=== PATIENT | male | born 1945 | race Caucasian/White ===

== ENCOUNTER 2023-09-21 10:05 | Inpatient (IN) | payer MEDICARE ==
[~2023-09-21] VITALS: Ht 172.7 cm; Wt 102.5 kg
[2023-09-21] VITALS (7 sets, daily range): BP systolic 100–127; BP diastolic 64–80; TEMP 100.2–100.5; O2SAT 95–98
[2023-09-21] MEDS ORDERED: ASPIRIN PO (10:17)
[2023-09-21] MEDS ORDERED: METOPROLOL (10:17)
[2023-09-21] MEDS ORDERED: LISINOPRIL (10:17)
[2023-09-21 10:39] LABS: BASOPHILS # (AUTO) 0.1 K/UL (0.0-0.2); BASOPHILS % (AUTO) 0.5 % (0.0-2.0); EOSINOPHILS % (AUTO) 0.1 % (0.0-7.0); HEMATOCRIT 42.1 % (36.7-47.1); HEMOGLOBIN 14.1 g/dL (12.5-16.3); LYMPHOCYTES # (AUTO) 0.6 K/uL (0.8-4.8); LYMPHOCYTES % (AUTO) 4.1 % (20.5-51.5); MEAN CORPUSCULAR HEMOGLOBIN 32.8 uug (23.8-33.4); MEAN CORPUSCULAR HGB CONC 34 g/dL (32.5-36.3); MEAN CORPUSCULAR VOLUME 97.9 fL (73.0-96.2); MONOCYTES # (AUTO) 1.4 K/uL (0.1-1.30); MONOCYTES % (AUTO) 8.9 % (0.0-11.0); NEUTROPHILS # (AUTO) 13.1 K/uL (1.8-8.9); NEUTROPHILS % (AUTO) 86.4 % (38.5-71.5); PLATELET COUNT (AUTO) 145 K/uL (152-348); RED CELL DISTRIBUTION WIDTH 13.6 % (12.1-16.2); WHITE BLOOD COUNT (AUTO) 15.2 K/uL (3.6-10.2)
[2023-09-21 11:00] LABS: DIFFERENTIAL COMMENT 1
[2023-09-21 11:28] LABS: ALANINE AMINOTRANSFERASE 35 U/L (16-63); ALBUMIN 2.8 g/dL (3.4-5.0); ALKALINE PHOSPHATASE 85 U/L (50-136); ASPARTATE AMINOTRANSFERASE 59 U/L (15-37); BILIRUBIN,DIRECT 0.7 mg/dL (0.0-0.2); BILIRUBIN,TOTAL 2.3 mg/dL (0.2-1.0); CARBON DIOXIDE 26 mmol/L (21-32); CHLORIDE 102 mmol/L (98-107); CREATININE 1.3 mg/dL (0.6-1.3); GLUCOSE 141 mg/dL (74-106); POTASSIUM 3.8 mmol/L (3.5-5.1); SODIUM SERUM 140 mmol/L (136-145); UREA NITROGEN, BLOOD 32 mg/dL (7-18)
[2023-09-21 11:37] LABS: ACETAMINOPHEN < 2.0 ug/mL (10-30)
[2023-09-21 11:38] LABS: ETHANOL < 3 MG/DL (0-10)
[2023-09-21 11:40] LABS: AMMONIA 10 umol/L (11-32)
[2023-09-21 11:59] LABS: LACTIC ACID 2.1 mmol/L (0.4-2.0)
[2023-09-21] MEDS ORDERED: ENOXAPARIN SODIUM 100 MG/ML DISP.SYRIN SQ ONE (12:47)
[2023-09-21] MEDS ORDERED: DILTIAZEM HCL 50 MG IV ONE (12:48)
[2023-09-21] MEDS: DILTIAZEM HCL 25 MG IV IV ONE (13:05)
[2023-09-21] MEDS: IV NORMAL SALINE 1000 ML BAG IV ONE (13:05)
[2023-09-21] MEDS: ENOXAPARIN SODIUM 100 MG/ML DISP.SYRIN SQ ONE ×3 (13:07→22:38)
[2023-09-21] MEDS: CEFTRIAXONE 2 G in IV DEXTROSE 5% 100 ML IV ONE (16:12)
[2023-09-21] MEDS ORDERED: CEFTRIAXONE /D5W 50ML IVPB **ER PYXIS IV ONE (16:13)
[2023-09-21 16:21] LABS: *BLOOD, URINE 2+ (NEGATIVE); *CLARITY,URINE CLEAR (CLEAR); *COLOR,URINE YELLOW (YELLOW); *KETONES,URINE NEGATIVE (NEGATIVE); *PROTEIN,URINE 2+ (NEGATIVE); LEUKOCYTE ESTERASE ,URINE NEGATIVE (NEGATIVE); NITRITE, URINE NEGATIVE (NEGATIVE); PH,URINE 5.5 (5.0-8.0); UGLUCOSE NEGATIVE (NEGATIVE)
[2023-09-21 16:25] LABS: *BILIRUBIN,URIN 1+ (NEGATIVE)
[2023-09-21 16:34] LABS: *AMPHETAMINE, URINE NEGATIVE (NEGATIVE); *BARBITURATE, URINE NEGATIVE (NEGATIVE); *BENZODIAZEPINE, URINE NEGATIVE (NEGATIVE); *CANNABINOID, URINE NEGATIVE (NEGATIVE); *COCCAINE, URINE NEGATIVE (NEGATIVE); *OPIATE, URINE NEGATIVE (NEGATIVE); *PHENCYCLIDINE SCREEN,URINE NEGATIVE (NEGATIVE)
[2023-09-21 16:36] LABS: BACTERIA,URINE MODERATE /HPF (NONE SEEN); RBC,URINE 80-100 /HPF (0-3); SQUAMOUS EPITHELIAL CELL,UR FEW /HPF (NONE SEEN); WBC,URINE 0-3 /HPF (0-3)
[2023-09-21 16:37] LABS: FENTANYL, URINE NEGATIVE (NEGATIVE)
[2023-09-21] MEDS ORDERED: LISI-782 PO (17:41)
[2023-09-21] MEDS: ACETAMINOPHEN 500 MG TABLET PO PRN (18:07)
[2023-09-21] MEDS: AMIODARONE HCL IV 150 MG in IV DEXTROSE 5% 100 ML IV ONE (18:08)
[2023-09-21] MEDS: AMIODARONE HCL IV 450 MG in IV DEXTROSE 5% 250 ML IV PRN (18:38)
[2023-09-21] MEDS ORDERED: ONDANSETRON 4 MG/2 ML VIAL IV PRN (18:45)
[2023-09-21] MEDS: VANCOMYCIN HCL 1,500 MG in IV DEXTROSE 5% 500 ML IV ONE (21:00)
[2023-09-21] MEDS: METOPROLOL TARTRATE 25 MG TABLET PO SCH (22:09)
[2023-09-21] MEDS: MORPHINE SULFATE 2 MG/1 ML DISP.SYRIN IV PRN (22:09)
[2023-09-21] MEDS: ENOXAPARIN SODIUM 40 MG/0.4 ML DISP.SYRIN SQ ONE (22:30)
[2023-09-21] MEDS: ENOXAPARIN SODIUM 60 MG/0.6 ML DISP.SYRIN SQ ONE (22:31)
[2023-09-21] MEDS ORDERED: PIPERACILLIN/TAZOBACTAM/D5W 50 ML IV ONE (22:41)
[2023-09-21] MEDS ORDERED: VANCOMYCIN 1000 MG VIAL ONE (22:41)
[2023-09-21] MEDS ORDERED: VANCOMYCIN HCL 500 MG VIAL ONE (22:42)
[2023-09-21] MEDS: PIPERACILLIN SODIUM/TAZOBACTAM 3.375 G in IV DEXTROSE 5% 50 ML IV SCH (22:55)
[2023-09-22] VITALS (25 sets, daily range): BP systolic 103–182; BP diastolic 26–158; TEMP 98.2–99.1; O2SAT 92–97
[2023-09-22] MEDS ORDERED: AMIODARONE HCL 150 MG/3 ML VIAL IV ONE (00:24)
[2023-09-22 04:57] LABS: BASOPHILS # (AUTO) 0.1 K/UL (0.0-0.2); EOSINOPHILS # (AUTO) 0.4 K/uL (0.0-0.7); HEMATOCRIT 37.7 % (36.7-47.1); HEMOGLOBIN 12.8 g/dL (12.5-16.3); LYMPHOCYTES # (AUTO) 1.2 K/uL (0.8-4.8); MEAN CORPUSCULAR HEMOGLOBIN 33.4 uug (23.8-33.4); MEAN CORPUSCULAR HGB CONC 34 g/dL (32.5-36.3); MEAN CORPUSCULAR VOLUME 98.6 fL (73.0-96.2); MONOCYTES # (AUTO) 1.4 K/uL (0.1-1.30); NEUTROPHILS # (AUTO) 9.8 K/uL (1.8-8.9); PLATELET COUNT (AUTO) 135 K/uL (152-348); RED BLOOD CELL COUNT(AUTO) 3.83 MIL/uL (4.06-5.63); RED CELL DISTRIBUTION WIDTH 13.4 % (12.1-16.2); WHITE BLOOD COUNT (AUTO) 12.9 K/uL (3.6-10.2)
[2023-09-22 05:17] LABS: DIFFERENTIAL COMMENT 1
[2023-09-22 05:29] LABS: THYROID STIMULATING HORMONE 1.717 mIU/mL (0.358-3.740)
[2023-09-22 05:35] LABS: IRON, SERUM 18 ug/dL (50-175)
[2023-09-22 05:57] LABS: ALANINE AMINOTRANSFERASE 46 U/L (16-63); ALBUMIN 2.2 g/dL (3.4-5.0); ALKALINE PHOSPHATASE 75 U/L (50-136); ASPARTATE AMINOTRANSFERASE 63 U/L (15-37); BILIRUBIN,TOTAL 1.4 mg/dL (0.2-1.0); CALCIUM 8.2 mg/dL (8.5-10.1); CARBON DIOXIDE 29 mmol/L (21-32); CHLORIDE 101 mmol/L (98-107); CHOLESTEROL 97 mg/dL (<200); CREATININE 1.3 mg/dL (0.6-1.3); GLUCOSE 133 mg/dL (74-106); HDL CHOLESTEROL 31 mg/dL (40-60); MAGNESIUM 2.2 mg/dL (1.8-2.4); PHOSPHOROUS 3.6 mg/dL (2.5-4.9); POTASSIUM 3.7 mmol/L (3.5-5.1); SODIUM SERUM 137 mmol/L (136-145); TOTAL PROTEIN, SERUM 6.2 g/dL (6.4-8.2); TRIGLYCERIDES 65 MG/DL (30-150); UREA NITROGEN, BLOOD 28 mg/dL (7-18)
[2023-09-22] MEDS ORDERED: PIPERACILLIN/TAZOBACTAM/D5W 50 ML IV ONE (06:01)
[2023-09-22] MEDS: PANTOPRAZOLE SODIUM 40 MG TABLET.DR PO SCH (06:41)
[2023-09-22] MEDS ORDERED: METOPROLOL TARTRATE 25 MG TABLET PO SCH (09:00)
[2023-09-22] MEDS ORDERED: ENOXAPARIN SODIUM 100 MG/ML DISP.SYRIN SQ SCH (09:00)
[2023-09-22] MEDS: METOPROLOL TARTRATE 50 MG TABLET PO SCH (09:36)
[2023-09-22] MEDS ORDERED: ACET-2154 PO (10:10)
[2023-09-22] MEDS ORDERED: METO-357 PO (10:10)
[2023-09-22] MEDS: TAMSULOSIN HCL 0.4 MG CAP.SR.24H PO SCH (11:55)
[2023-09-22] MEDS: PIPERACILLIN SODIUM/TAZOBACTAM 3.375 G in IV DEXTROSE 5% 50 ML IV SCH (12:00)
[2023-09-22] MEDS: DILTIAZEM HCL CD 120 MG CAP.SR.24H PO SCH (17:53)
[2023-09-22] MEDS: QUETIAPINE FUMARATE 25 MG TABLET PO SCH (20:15)
[2023-09-22] MEDS: VANCOMYCIN HCL 1,500 MG in IV DEXTROSE 5% 500 ML IV SCH (23:12)
[2023-09-23] VITALS (13 sets, daily range): BP systolic 97–145; BP diastolic 64–98; TEMP 97.8–100; O2SAT 92–96
[2023-09-23 05:01] LABS: BASOPHILS # (AUTO) 0.1 K/UL (0.0-0.2); BASOPHILS % (AUTO) 0.5 % (0.0-2.0); EOSINOPHILS # (AUTO) 0.1 K/uL (0.0-0.7); EOSINOPHILS % (AUTO) 0.8 % (0.0-7.0); HEMATOCRIT 35.1 % (36.7-47.1); LYMPHOCYTES # (AUTO) 0.8 K/uL (0.8-4.8); LYMPHOCYTES % (AUTO) 6.3 % (20.5-51.5); MEAN CORPUSCULAR HEMOGLOBIN 33.3 uug (23.8-33.4); MEAN CORPUSCULAR HGB CONC 34 g/dL (32.5-36.3); MEAN CORPUSCULAR VOLUME 97.5 fL (73.0-96.2); MONOCYTES # (AUTO) 1.2 K/uL (0.1-1.30); MONOCYTES % (AUTO) 9.4 % (0.0-11.0); NEUTROPHILS # (AUTO) 10.9 K/uL (1.8-8.9); PLATELET COUNT (AUTO) 133 K/uL (152-348); RED CELL DISTRIBUTION WIDTH 13.2 % (12.1-16.2); WHITE BLOOD COUNT (AUTO) 13.2 K/uL (3.6-10.2)
[2023-09-23 05:04] LABS: DIFFERENTIAL COMMENT 1
[2023-09-23 05:17] LABS: CALCIUM 8.2 mg/dL (8.5-10.1); CREATININE 1.2 mg/dL (0.6-1.3); POTASSIUM 3.5 mmol/L (3.5-5.1)
[2023-09-23] MEDS: ACETAMINOPHEN 325 MG TABLET PO PRN (07:44)
[2023-09-23] MEDS: DIGOXIN 500 MCG/2 ML AMP IV ONE ×2 (10:17→15:56)
[2023-09-23] MEDS: ENSURE ENLIVE (VAN) 240 ML LIQUID PO SCH (13:24)
[2023-09-23] MEDS: VANCOMYCIN HCL 1,500 MG in IV DEXTROSE 5% 500 ML IV SCH (16:43)
[2023-09-24] VITALS (7 sets, daily range): BP systolic 120–151; BP diastolic 60–100; TEMP 97.9–100.3; O2SAT 96–98
[2023-09-24] MEDS: DIGOXIN 125 MCG TABLET PO SCH (09:07)
[2023-09-24] MEDS: METOPROLOL TARTRATE 50 MG TABLET PO SCH (09:09)
[2023-09-24 10:57] LABS: BASOPHILS % (AUTO) 0.2 % (0.0-2.0); EOSINOPHILS # (AUTO) 0.3 K/uL (0.0-0.7); EOSINOPHILS % (AUTO) 2.3 % (0.0-7.0); HEMATOCRIT 37.9 % (36.7-47.1); HEMOGLOBIN 12.5 g/dL (12.5-16.3); LYMPHOCYTES # (AUTO) 0.5 K/uL (0.8-4.8); LYMPHOCYTES % (AUTO) 4.1 % (20.5-51.5); MEAN CORPUSCULAR HEMOGLOBIN 32.3 uug (23.8-33.4); MEAN CORPUSCULAR HGB CONC 33 g/dL (32.5-36.3); MEAN CORPUSCULAR VOLUME 97.8 fL (73.0-96.2); MONOCYTES % (AUTO) 8.8 % (0.0-11.0); NEUTROPHILS % (AUTO) 84.6 % (38.5-71.5); PLATELET COUNT (AUTO) 181 K/uL (152-348); RED BLOOD CELL COUNT(AUTO) 3.87 MIL/uL (4.06-5.63); RED CELL DISTRIBUTION WIDTH 13.3 % (12.1-16.2); WHITE BLOOD COUNT (AUTO) 11.8 K/uL (3.6-10.2)
[2023-09-24 11:11] LABS: CALCIUM 8.4 mg/dL (8.5-10.1); CARBON DIOXIDE 26 mmol/L (21-32); CHLORIDE 101 mmol/L (98-107); CREATININE 1.2 mg/dL (0.6-1.3); GLUCOSE 130 mg/dL (74-106); SODIUM SERUM 135 mmol/L (136-145); UREA NITROGEN, BLOOD 25 mg/dL (7-18)
[2023-09-24] MEDS: MIRALAX 17 GM POWD.PACK PO ONE (18:38)
[2023-09-25] VITALS (7 sets, daily range): BP systolic 110–146; BP diastolic 73–88; TEMP 97.6–98.6; O2SAT 96–97
[2023-09-25] MEDS: VANCOMYCIN HCL 1,500 MG in IV DEXTROSE 5% 500 ML IV SCH (03:30)
[2023-09-25] MEDS ORDERED: VANC1.5P12 IV (10:47)
[2023-09-25] MEDS ORDERED: METO50TA16 PO (10:47)
[2023-09-25] MEDS ORDERED: DIGO125T5 PO (10:47)
[2023-09-25] MEDS ORDERED: ACET325T53 PO (10:47)
[2023-09-25] MEDS ORDERED: Lactose-Free Food PO (10:47)
[2023-09-25] MEDS ORDERED: TAMS-3 PO (10:47)
[2023-09-25] MEDS ORDERED: PIPE3.379 IV (10:47)
[2023-09-25] MEDS ORDERED: QUET25TA36 PO (10:47)
== END 2023-09-25 12:50 | DRG 871 ==
LOC: ER 10:05 → TELE3 16:04 → CCU 17:18 → TELE3 09-23 17:39 → MEDSURG3 09-25 09:00
PROVIDERS: ADMIT Internal Medicine; ATTEND Internal Medicine
DX: A41.9 Sepsis, unspecified organism (principal); G92.8 Other toxic encephalopathy; N17.0 Acute kidney failure with tubular necrosis; J15.69 Pneumonia due to other Gram-negative bacteria; I48.20 Chronic atrial fibrillation, unspecified; E44.0 Moderate protein-calorie malnutrition; M62.82 Rhabdomyolysis; E87.20 Acidosis, unspecified; R17 Unspecified jaundice; I11.9 Hypertensive heart disease without heart failure; S02.2XXA Fracture of nasal bones, initial encounter for closed fracture; W18.30XA Fall on same level, unspecified, initial encounter; Y92.019 Unspecified place in single-family (private) house as the place of occurrence of the external cause; E88.09 Other disorders of plasma-protein metabolism, not elsewhere classified; R31.29 Other microscopic hematuria; I49.3 Ventricular premature depolarization; I25.10 Atherosclerotic heart disease of native coronary artery without angina pectoris; I08.3 Combined rheumatic disorders of mitral, aortic and tricuspid valves; D69.6 Thrombocytopenia, unspecified; D75.89 Other specified diseases of blood and blood-forming organs; R29.6 Repeated falls; E66.9 Obesity, unspecified; M16.10 Unilateral primary osteoarthritis, unspecified hip; Z68.32 Body mass index [BMI] 32.0-32.9, adult; Z95.5 Presence of coronary angioplasty implant and graft
CPT/HCPCS: 36415; 70450; 70486; 71045; 71250; 72125; 72170; 73020; 73502; 83550; 83605; 83690; 83735; 84100; 84443; 84484; 85025; 85730; 87040; 93005; 93307; A4606; A4663; A6213; A9150; C1758; G0378; G0480; J0282; J0696; J1160; J1650; J2270; J2543; J3370; J3371; J3490; J7040; J7050; J7060

== ENCOUNTER 2023-09-25 13:19 | Inpatient (IN) | payer MEDICARE ==
[~2023-09-25] VITALS: Ht 172.7 cm; Wt 97.2 kg
[~2023-09-25 13:19] MED LIST: ACET-2154 PO; ACET325T53 PO; ASPIRIN PO; DIGO125T5 PO; LISI-782 PO; Lactose-Free Food PO; METO-357 PO; METO50TA16 PO; PIPE3.379 IV; QUET25TA36 PO; TAMS-3 PO; VANC1.5P12 IV
[2023-09-25 13:30] VITALS: BP 127/81; TEMP 97.6; O2SAT 97
[2023-09-25] MEDS: PIPERACILLIN SODIUM/TAZOBACTAM 3.375 G in IV DEXTROSE 5% 50 ML IV SCH (17:43)
[2023-09-25] MEDS: ENSURE ENLIVE (VAN) 240 ML LIQUID PO SCH (17:43)
[2023-09-25 19:30] VITALS: BP 135/82; TEMP 100.3; O2SAT 98
[2023-09-25] MEDS: VANCOMYCIN HCL 1,500 MG in IV DEXTROSE 5% 500 ML IV SCH (20:48)
[2023-09-25] MEDS: QUETIAPINE FUMARATE 25 MG TABLET PO SCH (20:52)
[2023-09-25] MEDS: METOPROLOL TARTRATE 50 MG TABLET PO SCH (20:52)
[2023-09-26 06:00] VITALS: BP 135/79; TEMP 97.6; O2SAT 96
[2023-09-26] MEDS: PANTOPRAZOLE SODIUM 40 MG TABLET.DR PO SCH (06:41)
[2023-09-26] MEDS: TAMSULOSIN HCL 0.4 MG CAP.SR.24H PO SCH (09:08)
[2023-09-26] MEDS: DIGOXIN 125 MCG TABLET PO SCH (09:08)
[2023-09-26 09:24] LABS: BASOPHILS # (AUTO) 0.1 K/UL (0.0-0.2); BASOPHILS % (AUTO) 0.5 % (0.0-2.0); EOSINOPHILS # (AUTO) 0.4 K/uL (0.0-0.7); EOSINOPHILS % (AUTO) 3.4 % (0.0-7.0); HEMATOCRIT 39.8 % (36.7-47.1); HEMOGLOBIN 13.1 g/dL (12.5-16.3); LYMPHOCYTES # (AUTO) 0.6 K/uL (0.8-4.8); LYMPHOCYTES % (AUTO) 4.8 % (20.5-51.5); MEAN CORPUSCULAR HEMOGLOBIN 32.3 uug (23.8-33.4); MEAN CORPUSCULAR HGB CONC 33 g/dL (32.5-36.3); MEAN CORPUSCULAR VOLUME 98.4 fL (73.0-96.2); MONOCYTES % (AUTO) 7.9 % (0.0-11.0); NEUTROPHILS # (AUTO) 10.2 K/uL (1.8-8.9); NEUTROPHILS % (AUTO) 83.4 % (38.5-71.5); PLATELET COUNT (AUTO) 235 K/uL (152-348); RED BLOOD CELL COUNT(AUTO) 4.05 MIL/uL (4.06-5.63); RED CELL DISTRIBUTION WIDTH 13.3 % (12.1-16.2); WHITE BLOOD COUNT (AUTO) 12.2 K/uL (3.6-10.2)
[2023-09-26 09:28] LABS: DIFFERENTIAL COMMENT 1
[2023-09-26 09:31] LABS: CALCIUM 8.7 mg/dL (8.5-10.1); CREATININE 1.1 mg/dL (0.6-1.3)
[2023-09-26] MEDS ORDERED: LEVALBUTEROL HCL NEB 0.63 MG/3 ML NEBU NEB PRN (15:45)
[2023-09-26] MEDS ORDERED: IPRATROPIUM BROMIDE 0.5 MG/2.5 ML NEBU NEB PRN (15:45)
[2023-09-26 15:57] VITALS: BP 138/79; TEMP 98.6; O2SAT 97
[2023-09-26 19:15] VITALS: BP 138/78; TEMP 97.6; O2SAT 97
[2023-09-27 06:52] LABS: BASOPHILS # (AUTO) 0.1 K/UL (0.0-0.2); BASOPHILS % (AUTO) 0.7 % (0.0-2.0); EOSINOPHILS # (AUTO) 0.5 K/uL (0.0-0.7); EOSINOPHILS % (AUTO) 4.4 % (0.0-7.0); HEMOGLOBIN 12.9 g/dL (12.5-16.3); LYMPHOCYTES # (AUTO) 0.7 K/uL (0.8-4.8); LYMPHOCYTES % (AUTO) 6.7 % (20.5-51.5); MEAN CORPUSCULAR HGB CONC 34 g/dL (32.5-36.3); MEAN CORPUSCULAR VOLUME 97.3 fL (73.0-96.2); MONOCYTES # (AUTO) 0.8 K/uL (0.1-1.30); MONOCYTES % (AUTO) 7.6 % (0.0-11.0); NEUTROPHILS # (AUTO) 8.8 K/uL (1.8-8.9); NEUTROPHILS % (AUTO) 80.6 % (38.5-71.5); PLATELET COUNT (AUTO) 269 K/uL (152-348); RED BLOOD CELL COUNT(AUTO) 3.91 MIL/uL (4.06-5.63); RED CELL DISTRIBUTION WIDTH 13.5 % (12.1-16.2); WHITE BLOOD COUNT (AUTO) 10.9 K/uL (3.6-10.2)
[2023-09-27 06:57] VITALS: BP 124/63; TEMP 97.5; O2SAT 97
[2023-09-27 07:02] LABS: DIFFERENTIAL COMMENT 1
[2023-09-27 07:03] LABS: CALCIUM 8.3 mg/dL (8.5-10.1); CREATININE 1.1 mg/dL (0.6-1.3); MAGNESIUM 2.2 mg/dL (1.8-2.4); PHOSPHOROUS 2.8 mg/dL (2.5-4.9); POTASSIUM 3.6 mmol/L (3.5-5.1)
[2023-09-27 07:10] LABS: C-REACTIVE PROTEIN 14.55 mg/dL (0.00-0.30)
[2023-09-27 09:22] VITALS: BP 104/80; TEMP 97.8; O2SAT 96
[2023-09-27] MEDS: ACETAMINOPHEN 325 MG TABLET PO PRN (10:57)
[2023-09-27 16:00] VITALS: BP 141/60; TEMP 98.3; O2SAT 98
[2023-09-27 19:15] VITALS: BP 148/74; TEMP 97.3; O2SAT 98
[2023-09-28 05:33] VITALS: BP 113/68; TEMP 98.3; O2SAT 94
[2023-09-28] MEDS ORDERED: ALBUTEROL SULFATE 1.25 MG/3 ML NEBU NEB PRN (07:45)
[2023-09-28 12:00] VITALS: BP 137/68; TEMP 97.1; O2SAT 99
[2023-09-28 16:00] VITALS: BP 120/63; TEMP 98.6; O2SAT 95
[2023-09-28 20:00] VITALS: TEMP 99
[2023-09-29] VITALS: TEMP 98
[2023-09-29 03:23] LABS: EOSINOPHILS # (AUTO) 0.5 K/uL (0.0-0.7); EOSINOPHILS % (AUTO) 3.8 % (0.0-7.0); HEMATOCRIT 38.2 % (36.7-47.1); HEMOGLOBIN 12.6 g/dL (12.5-16.3); LYMPHOCYTES # (AUTO) 1.1 K/uL (0.8-4.8); LYMPHOCYTES % (AUTO) 8.2 % (20.5-51.5); MEAN CORPUSCULAR HEMOGLOBIN 32.5 uug (23.8-33.4); MEAN CORPUSCULAR HGB CONC 33 g/dL (32.5-36.3); MEAN CORPUSCULAR VOLUME 98.6 fL (73.0-96.2); MONOCYTES % (AUTO) 7.5 % (0.0-11.0); NEUTROPHILS # (AUTO) 10.9 K/uL (1.8-8.9); NEUTROPHILS % (AUTO) 80.5 % (38.5-71.5); PLATELET COUNT (AUTO) 303 K/uL (152-348); RED BLOOD CELL COUNT(AUTO) 3.88 MIL/uL (4.06-5.63); RED CELL DISTRIBUTION WIDTH 13.6 % (12.1-16.2); WHITE BLOOD COUNT (AUTO) 13.5 K/uL (3.6-10.2)
[2023-09-29 03:27] LABS: DIFFERENTIAL COMMENT 1
[2023-09-29 03:34] LABS: CREATININE 1.2 mg/dL (0.6-1.3); MAGNESIUM 2.2 mg/dL (1.8-2.4); POTASSIUM 3.4 mmol/L (3.5-5.1)
[2023-09-29 03:49] LABS: C-REACTIVE PROTEIN 11.82 mg/dL (0.00-0.30)
[2023-09-29 04:00] VITALS: TEMP 98
[2023-09-29 04:01] LABS: CALCIUM 8.6 mg/dL (8.5-10.1)
[2023-09-29] MEDS: POTASSIUM CHLORIDE 20 MEQ TAB.PRT.SR PO ONE (08:58)
[2023-09-29 12:00] VITALS: BP 127/73; TEMP 97.8; O2SAT 95
[2023-09-29 16:01] VITALS: BP 120/69; TEMP 97.2; O2SAT 93
[2023-09-29] MEDS: VANCOMYCIN HCL 1,500 MG in IV DEXTROSE 5% 500 ML IV SCH (20:19)
[2023-09-29 20:27] VITALS: BP 126/80; TEMP 98.7; O2SAT 97
[2023-09-30 06:06] VITALS: BP 130/67; TEMP 98.6; O2SAT 95
[2023-09-30 06:53] LABS: BASOPHILS # (AUTO) 0.1 K/UL (0.0-0.2); EOSINOPHILS # (AUTO) 0.6 K/uL (0.0-0.7); EOSINOPHILS % (AUTO) 4.6 % (0.0-7.0); HEMATOCRIT 35.9 % (36.7-47.1); HEMOGLOBIN 12.3 g/dL (12.5-16.3); LYMPHOCYTES % (AUTO) 7.6 % (20.5-51.5); MEAN CORPUSCULAR HEMOGLOBIN 33.4 uug (23.8-33.4); MEAN CORPUSCULAR HGB CONC 34 g/dL (32.5-36.3); MEAN CORPUSCULAR VOLUME 97.2 fL (73.0-96.2); MONOCYTES % (AUTO) 7.4 % (0.0-11.0); NEUTROPHILS # (AUTO) 10.3 K/uL (1.8-8.9); NEUTROPHILS % (AUTO) 79.4 % (38.5-71.5); PLATELET COUNT (AUTO) 310 K/uL (152-348); RED BLOOD CELL COUNT(AUTO) 3.69 MIL/uL (4.06-5.63); RED CELL DISTRIBUTION WIDTH 13.3 % (12.1-16.2); WHITE BLOOD COUNT (AUTO) 12.9 K/uL (3.6-10.2)
[2023-09-30 06:57] LABS: CALCIUM 8.1 mg/dL (8.5-10.1); CREATININE 1.2 mg/dL (0.6-1.3); MAGNESIUM 2.2 mg/dL (1.8-2.4); PHOSPHOROUS 2.7 mg/dL (2.5-4.9)
[2023-09-30 07:02] LABS: DIFFERENTIAL COMMENT 1
[2023-09-30 12:00] VITALS: BP 102/75; TEMP 97.6; O2SAT 97
[2023-09-30 16:00] VITALS: BP 143/68; TEMP 98.2; O2SAT 97
[2023-09-30 20:00] VITALS: BP 124/72; TEMP 97.9; O2SAT 97
[2023-10-01 06:18] VITALS: BP 125/73; TEMP 97.6; O2SAT 93
[2023-10-01] MEDS: MAGNESIUM HYDROXIDE 30 ML LIQUID UDC PO PRN (12:18)
[2023-10-01] MEDS: PIPERACILLIN SODIUM/TAZOBACTAM 3.375 G in IV DEXTROSE 5% 100 ML IV SCH (14:38)
[2023-10-01 15:49] LABS: CALCIUM 8.7 mg/dL (8.5-10.1); CARBON DIOXIDE 26 mmol/L (21-32); CHLORIDE 101 mmol/L (98-107); CREATININE 1.3 mg/dL (0.6-1.3); GLUCOSE 133 mg/dL (74-106); POTASSIUM 4.1 mmol/L (3.5-5.1); SODIUM SERUM 138 mmol/L (136-145); UREA NITROGEN, BLOOD 18 mg/dL (7-18)
[2023-10-01 16:09] VITALS: BP 118/70; TEMP 97.3; O2SAT 96
[2023-10-01 19:20] VITALS: BP 128/77; TEMP 97.9; O2SAT 95
[2023-10-01 21:14] VITALS: O2SAT 95
[2023-10-02 05:25] VITALS: BP 123/65; TEMP 97.6; O2SAT 93
[2023-10-02 07:21] LABS: BASOPHILS # (AUTO) 0.1 K/UL (0.0-0.2); EOSINOPHILS # (AUTO) 0.7 K/uL (0.0-0.7); EOSINOPHILS % (AUTO) 5.4 % (0.0-7.0); HEMATOCRIT 35.9 % (36.7-47.1); HEMOGLOBIN 11.8 g/dL (12.5-16.3); LYMPHOCYTES # (AUTO) 1.2 K/uL (0.8-4.8); LYMPHOCYTES % (AUTO) 10.1 % (20.5-51.5); MEAN CORPUSCULAR HEMOGLOBIN 31.7 uug (23.8-33.4); MEAN CORPUSCULAR HGB CONC 33 g/dL (32.5-36.3); MEAN CORPUSCULAR VOLUME 96.9 fL (73.0-96.2); MONOCYTES % (AUTO) 7.8 % (0.0-11.0); NEUTROPHILS # (AUTO) 9.4 K/uL (1.8-8.9); NEUTROPHILS % (AUTO) 75.7 % (38.5-71.5); PLATELET COUNT (AUTO) 376 K/uL (152-348); RED BLOOD CELL COUNT(AUTO) 3.71 MIL/uL (4.06-5.63); RED CELL DISTRIBUTION WIDTH 13.7 % (12.1-16.2); WHITE BLOOD COUNT (AUTO) 12.4 K/uL (3.6-10.2)
[2023-10-02 07:29] LABS: DIFFERENTIAL COMMENT 1
[2023-10-02 07:37] LABS: CALCIUM 8.4 mg/dL (8.5-10.1); CREATININE 1.2 mg/dL (0.6-1.3); MAGNESIUM 2.3 mg/dL (1.8-2.4); PHOSPHOROUS 2.6 mg/dL (2.5-4.9)
[2023-10-02 13:40] LABS: EOSINOPHILS % (MANUAL) 4 % (0-8); LYMPHOCYTES % (MANUAL) 11 % (20-40); MONOCYTES % (MANUAL) 7 % (2-10); NEUTROPHILS % (MANUAL) 78 % (42-75)
[2023-10-02 13:41] LABS: ANISOCYTOSIS 2+; PLATELET ESTIMATE ADEQUATE
[2023-10-02 20:53] VITALS: BP 121/64; TEMP 98.1; O2SAT 98
[2023-10-03 06:05] VITALS: BP 130/78; TEMP 98.9; O2SAT 96
[2023-10-03] MEDS: FLUTICASONE/VILANTEROL 1 EACH BLST.W.DEV INH SCH (09:00)
[2023-10-03] MEDS ORDERED: IPRATROPIUM BROMIDE 12.9 GM INHALER INH SCH (09:00)
[2023-10-03] MEDS: IPRATROPIUM BROMIDE 0.5 MG/2.5 ML NEBU NEB SCH (13:00)
[2023-10-03 15:45] VITALS: BP 126/75; TEMP 98.3; O2SAT 96
[2023-10-03 19:54] VITALS: BP 149/77; TEMP 98.2; O2SAT 98
[2023-10-04 04:20] VITALS: BP 116/50; TEMP 98.3; O2SAT 95
[2023-10-04 06:37] LABS: BASOPHILS # (AUTO) 0.1 K/UL (0.0-0.2); EOSINOPHILS # (AUTO) 0.6 K/uL (0.0-0.7); EOSINOPHILS % (AUTO) 4.9 % (0.0-7.0); HEMATOCRIT 35.7 % (36.7-47.1); HEMOGLOBIN 11.9 g/dL (12.5-16.3); LYMPHOCYTES # (AUTO) 1.3 K/uL (0.8-4.8); LYMPHOCYTES % (AUTO) 10.6 % (20.5-51.5); MEAN CORPUSCULAR HGB CONC 33 g/dL (32.5-36.3); MEAN CORPUSCULAR VOLUME 96.6 fL (73.0-96.2); MONOCYTES # (AUTO) 0.8 K/uL (0.1-1.30); MONOCYTES % (AUTO) 6.9 % (0.0-11.0); NEUTROPHILS # (AUTO) 9.4 K/uL (1.8-8.9); NEUTROPHILS % (AUTO) 76.6 % (38.5-71.5); PLATELET COUNT (AUTO) 360 K/uL (152-348); RED CELL DISTRIBUTION WIDTH 13.9 % (12.1-16.2); WHITE BLOOD COUNT (AUTO) 12.2 K/uL (3.6-10.2)
[2023-10-04 07:32] LABS: ALBUMIN 1.9 g/dL (3.4-5.0); BILIRUBIN,TOTAL 1.1 mg/dL (0.2-1.0); CALCIUM 8.7 mg/dL (8.5-10.1); CREATININE 1.3 mg/dL (0.6-1.3); MAGNESIUM 2.2 mg/dL (1.8-2.4); PHOSPHOROUS 3.2 mg/dL (2.5-4.9); TOTAL PROTEIN, SERUM 6.5 g/dL (6.4-8.2)
[2023-10-04] MEDS: TRELEGY ELLIPTA INH SCH (08:55)
[2023-10-04] MEDS ORDERED: TRELEGY ELLIPTA INH SCH (11:39)
[2023-10-04] MEDS: PROTEIN SUPPLEMENT (PROSTAT) 30 ML LIQUID PO SCH (12:17)
[2023-10-04 16:09] VITALS: BP 112/77; TEMP 97.8; O2SAT 95
[2023-10-04 20:44] VITALS: BP 139/79; TEMP 98.4; O2SAT 95
[2023-10-05] MEDS: TRELEGY ELLIPTA INH SCH (08:47)
[2023-10-05 12:00] VITALS: BP 130/74; TEMP 98.8; O2SAT 98
[2023-10-05 16:00] VITALS: BP 142/78; TEMP 97.2; O2SAT 97
[2023-10-05] MEDS: TAMSULOSIN HCL 0.4 MG CAP.SR.24H PO SCH (20:31)
[2023-10-05 21:56] VITALS: BP 133/80; TEMP 97.3; O2SAT 95
[2023-10-06 06:00] VITALS: BP 125/81; TEMP 98; O2SAT 94
[2023-10-06 06:19] LABS: BASOPHILS # (AUTO) 0.2 K/UL (0.0-0.2); BASOPHILS % (AUTO) 1.4 % (0.0-2.0); EOSINOPHILS # (AUTO) 0.8 K/uL (0.0-0.7); EOSINOPHILS % (AUTO) 6.8 % (0.0-7.0); HEMATOCRIT 37.2 % (36.7-47.1); HEMOGLOBIN 12.3 g/dL (12.5-16.3); LYMPHOCYTES # (AUTO) 1.3 K/uL (0.8-4.8); LYMPHOCYTES % (AUTO) 11.2 % (20.5-51.5); MEAN CORPUSCULAR HEMOGLOBIN 31.8 uug (23.8-33.4); MEAN CORPUSCULAR HGB CONC 33 g/dL (32.5-36.3); MEAN CORPUSCULAR VOLUME 96.1 fL (73.0-96.2); MONOCYTES # (AUTO) 0.9 K/uL (0.1-1.30); MONOCYTES % (AUTO) 7.5 % (0.0-11.0); NEUTROPHILS # (AUTO) 8.8 K/uL (1.8-8.9); NEUTROPHILS % (AUTO) 73.1 % (38.5-71.5); PLATELET COUNT (AUTO) 291 K/uL (152-348); RED BLOOD CELL COUNT(AUTO) 3.88 MIL/uL (4.06-5.63); RED CELL DISTRIBUTION WIDTH 13.8 % (12.1-16.2)
[2023-10-06 06:23] LABS: DIFFERENTIAL COMMENT 1
[2023-10-06 06:41] LABS: ALANINE AMINOTRANSFERASE 40 U/L (16-63); ALBUMIN 1.9 g/dL (3.4-5.0); ALKALINE PHOSPHATASE 143 U/L (50-136); ASPARTATE AMINOTRANSFERASE 31 U/L (15-37); CALCIUM 8.6 mg/dL (8.5-10.1); CARBON DIOXIDE 24 mmol/L (21-32); CHLORIDE 105 mmol/L (98-107); CREATININE 1.2 mg/dL (0.6-1.3); GLUCOSE 107 mg/dL (74-106); MAGNESIUM 2.3 mg/dL (1.8-2.4); POTASSIUM 4.1 mmol/L (3.5-5.1); SODIUM SERUM 136 mmol/L (136-145); TOTAL PROTEIN, SERUM 6.5 g/dL (6.4-8.2); UREA NITROGEN, BLOOD 19 mg/dL (7-18)
[2023-10-06 06:45] LABS: C-REACTIVE PROTEIN 6.72 mg/dL (0.00-0.30)
[2023-10-06] MEDS: PROTEIN SUPPLEMENT (PROSTAT) 30 ML LIQUID PO SCH (08:33)
[2023-10-06 14:31] LABS: PROSTATE SPECIFIC ANTIGEN 4.22 ng/mL (0.00-4.00)
[2023-10-06 20:25] VITALS: BP 119/71; TEMP 98.8; O2SAT 98
[2023-10-06 21:28] VITALS: O2SAT 95
[2023-10-07 06:09] VITALS: BP 129/72; TEMP 98; O2SAT 96
[2023-10-07 16:30] VITALS: BP 124/79; TEMP 97.6; O2SAT 96
[2023-10-07 19:45] VITALS: BP 115/76; TEMP 97.6; O2SAT 94
[2023-10-08 05:00] VITALS: O2SAT 96
[2023-10-08 05:47] VITALS: BP 127/84; TEMP 97.8; O2SAT 94
[2023-10-08 15:42] VITALS: BP 115/64; TEMP 97.2; O2SAT 98
[2023-10-08 19:15] VITALS: BP 118/77; TEMP 98.5; O2SAT 95
[2023-10-09 05:47] VITALS: BP 120/72; TEMP 97.6; O2SAT 96
[2023-10-09 08:04] LABS: BASOPHILS # (AUTO) 0.1 K/UL (0.0-0.2); BASOPHILS % (AUTO) 1.3 % (0.0-2.0); EOSINOPHILS # (AUTO) 1.1 K/uL (0.0-0.7); EOSINOPHILS % (AUTO) 11.7 % (0.0-7.0); HEMATOCRIT 35.2 % (36.7-47.1); HEMOGLOBIN 12.1 g/dL (12.5-16.3); LYMPHOCYTES # (AUTO) 1.1 K/uL (0.8-4.8); LYMPHOCYTES % (AUTO) 12.3 % (20.5-51.5); MEAN CORPUSCULAR HEMOGLOBIN 32.8 uug (23.8-33.4); MEAN CORPUSCULAR HGB CONC 34 g/dL (32.5-36.3); MEAN CORPUSCULAR VOLUME 95.7 fL (73.0-96.2); MONOCYTES # (AUTO) 0.7 K/uL (0.1-1.30); NEUTROPHILS # (AUTO) 6.2 K/uL (1.8-8.9); NEUTROPHILS % (AUTO) 66.7 % (38.5-71.5); PLATELET COUNT (AUTO) 223 K/uL (152-348); RED BLOOD CELL COUNT(AUTO) 3.68 MIL/uL (4.06-5.63); RED CELL DISTRIBUTION WIDTH 13.4 % (12.1-16.2); WHITE BLOOD COUNT (AUTO) 9.2 K/uL (3.6-10.2)
[2023-10-09 08:11] LABS: DIFFERENTIAL COMMENT 1
[2023-10-09 08:17] LABS: BILIRUBIN,TOTAL 0.9 mg/dL (0.2-1.0); CALCIUM 8.6 mg/dL (8.5-10.1); CREATININE 1.1 mg/dL (0.6-1.3); MAGNESIUM 2.1 mg/dL (1.8-2.4); PHOSPHOROUS 3.4 mg/dL (2.5-4.9); POTASSIUM 3.7 mmol/L (3.5-5.1); TOTAL PROTEIN, SERUM 6.4 g/dL (6.4-8.2)
[2023-10-09 17:20] VITALS: BP 123/84; TEMP 98.8; O2SAT 97
[2023-10-09 19:59] VITALS: BP 124/76; TEMP 98.6; O2SAT 96
[2023-10-09 22:51] VITALS: O2SAT 96
[2023-10-10 06:10] VITALS: BP 115/74; TEMP 98.4; O2SAT 97
[2023-10-10 16:51] VITALS: BP 123/82; TEMP 98.9; O2SAT 95
[2023-10-10 19:58] VITALS: O2SAT 95
[2023-10-10 20:38] VITALS: BP 132/76; TEMP 98.8; O2SAT 96
[2023-10-11 16:00] VITALS: BP 143/72; TEMP 97.8; O2SAT 97
[2023-10-11 20:26] VITALS: BP 138/76; TEMP 98.6; O2SAT 96
[2023-10-11 20:43] VITALS: O2SAT 95
[2023-10-12 09:00] VITALS: BP 124/90
== END 2023-10-12 11:20 | disposition home health service (06) | DRG 949 ==
PROVIDERS: ADMIT Physical Medicine & Rehabilitation; ATTEND Physical Medicine & Rehabilitation Pain Medicine
DX: S06.89 Other specified intracranial injury (principal); A41.9 Sepsis, unspecified organism; E43 Unspecified severe protein-calorie malnutrition; G92.8 Other toxic encephalopathy; J15.69 Pneumonia due to other Gram-negative bacteria; J69.0 Pneumonitis due to inhalation of food and vomit; D68.59 Other primary thrombophilia; E44.0 Moderate protein-calorie malnutrition; M62.82 Rhabdomyolysis; N17.9 Acute kidney failure, unspecified; I48.20 Chronic atrial fibrillation, unspecified; E87.1 Hypo-osmolality and hyponatremia; E87.20 Acidosis, unspecified; J44.0 Chronic obstructive pulmonary disease with (acute) lower respiratory infection; S02.2XXD Fracture of nasal bones, subsequent encounter for fracture with routine healing; S22.42XD Multiple fractures of ribs, left side, subsequent encounter for fracture with routine healing; W19.XXXD Unspecified fall, subsequent encounter; E78.5 Hyperlipidemia, unspecified; R29.6 Repeated falls; I10 Essential (primary) hypertension; I48.0 Paroxysmal atrial fibrillation; E66.01 Morbid (severe) obesity due to excess calories; E88.09 Other disorders of plasma-protein metabolism, not elsewhere classified; I25.10 Atherosclerotic heart disease of native coronary artery without angina pectoris; I34.0 Nonrheumatic mitral (valve) insufficiency; M89.8X9 Other specified disorders of bone, unspecified site; R31.29 Other microscopic hematuria; D53.9 Nutritional anemia, unspecified; Z87.891 Personal history of nicotine dependence; Z68.33 Body mass index [BMI] 33.0-33.9, adult; R97.20 Elevated prostate specific antigen [PSA]; R53.1 Weakness; R26.81 Unsteadiness on feet
CPT/HCPCS: 36415; 70030-TC; 71045; 83605; 83735; 84100; 84153; 85025; 86140; 93005; 97535-GO-CO; C1758; J2543; J3371; J7060